=== PATIENT | female | born 1995 | race African-American/Black ===

== ENCOUNTER 2025-04-05 10:30 | Emergency (ER) | payer MEDICAID ==
[~2025-04-05] VITALS: Ht 149.9 cm; Wt 91.0 kg
[2025-04-05 10:35] VITALS: TEMP 98.1
[2025-04-05 12:44] VITALS: BP 116/74; PULSE 82; RESP 16; O2SAT 99
[2025-04-05] MEDS ORDERED: SULF-261 PO (14:08)
[2025-04-05] MEDS ORDERED: CEPH-558 PO (14:08)
== END 2025-04-05 15:00 | disposition home or self-care (01) ==
LOC: EMS 10:30
DX: L03.116 Cellulitis of left lower limb (principal); F12.90 Cannabis use, unspecified, uncomplicated
CPT/HCPCS: 99283; Z7502

== ENCOUNTER 2025-04-19 06:32 | Emergency (ER) | payer MEDICAID ==
[~2025-04-19] VITALS: Ht 149.9 cm; Wt 86.4 kg
[~2025-04-19 06:32] MED LIST: CEPH-558 PO; SULF-261 PO
[2025-04-19 08:13] VITALS: BP 122/78; PULSE 90; RESP 16; TEMP 99.005360; O2SAT 99
== END 2025-04-19 08:18 | disposition home or self-care (01) ==
LOC: EMS 06:32
DX: L03.317 Cellulitis of buttock (principal); F12.90 Cannabis use, unspecified, uncomplicated; Z79.899 Other long term (current) drug therapy
CPT/HCPCS: 99281; 99282; Z7502

== ENCOUNTER 2025-04-28 05:40 | Emergency (ER) | payer MEDICAID ==
[~2025-04-28] VITALS: Ht 149.9 cm; Wt 86.4 kg
[2025-04-28 06:44] LABS: PLATELET COUNT (AUTO) 291 K/uL (150-450); RED BLOOD CELL COUNT(AUTO) 4.57 MIL/uL (4.00-5.20); RED CELL DISTRIBUTION WIDTH 19.0 % (11.5-14.5); WHITE BLOOD COUNT (AUTO) 4.4 K/uL (4.5-11.0)
[2025-04-28 06:55] LABS: CALCIUM, TOTAL 8.9 mg/dL (8.8-10.5); CREATININE 0.71 mg/dL (0.60-1.30); GLOMERULAR FILTR. RATE CALC > 60 mL/min (>60); GLUCOSE,RANDOM 99 mg/dL (70-110); SODIUM SERUM 139 mmol/L (136-145); UREA NITROGEN, BLOOD 11 mg/dL (7-18)
[2025-04-28 07:03] LABS: TROPONIN I-HIGH SENSITIVITY Less Than 4 ng/L (<51)
[2025-04-28 07:06] LABS: RBC MORPHOLOGY COMMENT ABNORMAL RBC MORPH
[2025-04-28] MEDS ORDERED: OMEP-148 PO (07:40)
[2025-04-28] MEDS: FAMOTIDINE 20 MG TABLET PO ONE (07:52)
[2025-04-28] MEDS: MAG HYDROX/ALUMINUM HYD/SIMETH 30 ML SUSPENSION UDCUP PO ONE (07:52)
[2025-04-28 07:57] VITALS: BP 116/76; PULSE 80; RESP 16; TEMP 98.4; O2SAT 99
== END 2025-04-28 08:06 | disposition home or self-care (01) ==
LOC: EMS 05:49
DX: K21.9 Gastro-esophageal reflux disease without esophagitis (principal); R07.89 Other chest pain; F12.90 Cannabis use, unspecified, uncomplicated; N89.8 Other specified noninflammatory disorders of vagina; Z79.899 Other long term (current) drug therapy
CPT/HCPCS: 80048; 84484; 84702; 85025; 93005; 99284